=== PATIENT | female | born 1995 | race Caucasian/White ===

== ENCOUNTER 2019-12-21 03:33 | Emergency (ER) | payer MEDICAID ==
[~2019-12-21] VITALS: Ht 165.1 cm; Wt 63.6 kg
[2019-12-21] MEDS ORDERED: ondansetron 4mg rapidly disintigrating tab PO ONE (03:45)
[2019-12-21 04:10] LABS: BASOPHILS # (AUTO) 0.1 X10'3 (0-0.2); BASOPHILS % (AUTO) 0.3 % (0-1); COLOR,URINE YELLOW (Yellow); EOSINOPHILS # (AUTO) 0.1 X10'3 (0-0.9); EOSINOPHILS % (AUTO) 0.6 % (0-6); GLUCOSE, URINE NEGATIVE (Neg); HEMATOCRIT 41.3 % (35.0-45.0); HEMOGLOBIN 13.8 g/dl (12.0-16.0); KETONES,URINE NEGATIVE (Neg); LEUKOCYTE ESTERASE ,URINE SMALL (Neg); LYMPHOCYTES # (AUTO) 3.3 X10'3 (1.1-4.8); LYMPHOCYTES % (AUTO) 17.4 % (21-51); MEAN CORPUSCULAR HEMOGLOBIN 28.7 PG (27.0-31.0); MEAN CORPUSCULAR HGB CONC 33.5 g/dL (33.0-36.5); MEAN CORPUSCULAR VOLUME 85.5 FL (78-98); MEAN PLATELET VOLUME 8.3 FL (7.4-10.4); MONOCYTES % (AUTO) 5.6 % (2-12); NEUTROPHILS # (AUTO) 14.3 X10'3 (1.8-7.7); NEUTROPHILS % (AUTO) 76.1 % (42-75); NITRITES, URINE NEGATIVE (Neg); OCCULT BLOOD,URINE NEGATIVE (Neg); PH,URINE 6.5 (4.8-8.0); PLATELET COUNT 374 X10'3 (140-440); PROTEIN,URINE NEGATIVE (Neg); RED BLOOD COUNT 4.83 X10'6 (4.20-5.60); RED CELL DISTRIBUTION WIDTH 14.3 % (11.5-14.5); UROBILINOGEN,URINE 0.2 E.U/dL (0.2-1.0); WHITE BLOOD COUNT 18.8 X10'3 (4.5-11.0)
[2019-12-21 04:15] LABS: URINE HCG NEGATIVE (NEG)
[2019-12-21 04:16] LABS: UA COLLECTION TYPE CLN CATCH MIDSTREAM
[2019-12-21 04:17] LABS: BACTERIA,URINE FEW /HPF (Neg); CLARITY,URINE SLIGHTLY CLOUDY (Clear); MUCUS STRANDS FEW /LPF (Neg); RBC,URINE 0-2 /HPF (0-2); SQUAMOUS EPITHELIAL CELL,UR FEW /LPF (FEW)
[2019-12-21] MEDS ORDERED: ketorolac tromethamine 15mg/ml inj. IV ONE (04:30)
[2019-12-21 04:37] LABS: URINE AMPHETAMINE SCREEN POSITIVE (Neg); URINE BARBITUATE SCREEN NEGATIVE (Neg); URINE BENZODIAZEPINES SCREEN NEGATIVE (Neg); URINE CANNABINOID SCREEN POSITIVE (Neg); URINE COCAINE SCREEN NEGATIVE (Neg); URINE METHADONE SCREEN NEGATIVE (Neg); URINE OPIATE SCREEN POSITIVE (Neg); URINE PHENCYCLIDINE SCREEN NEGATIVE (Neg)
[2019-12-21 04:46] LABS: ALANINE AMINOTRANSFERASE 18 U/L (12-78); ALKALINE PHOSPHATASE 91 IU/L (46-116); ANION GAP 7 (8-16); ASPARTATE AMINO TRANSFERASE 11 U/L (10-37); BILIRUBIN,TOTAL 0.3 MG/DL (0.1-1.0); BLOOD UREA NITROGEN 12 MG/DL (7-18); CALCIUM 9.4 MG/DL (8.5-10.1); CHLORIDE 105 MMOL/L (99-107); CREATININE 0.86 MG/DL (0.40-0.90); GLUCOSE 105 MG/DL (70-104); LIPASE 62 U/L (73-393); POTASSIUM 4.3 MMOL/L (3.5-5.1); SODIUM 142 MMOL/L (135-145); TOTAL CARBON DIOXIDE 29.9 MMOL/L (24-32); TOTAL PROTEIN 8.2 G/DL (6.4-8.2); eGFR 82 ML/MIN
[2019-12-21] MEDS ORDERED: azithromycin 250mg tablet PO ONE (05:00)
[2019-12-21] MEDS ORDERED: CefTRIAXone 250MG inj IV ONE (05:00)
[2019-12-21] MEDS ORDERED: METR-159 PO (05:07)
[2019-12-21] MEDS ORDERED: DOXY100C43 PO (05:07)
[2019-12-21] MEDS ORDERED: CefTRIAXone 250MG IM Kit w/LIDOcaine IM ONE (05:15)
[2019-12-21 05:30] VITALS: BP 140/94
== END 2019-12-21 05:32 | disposition home or self-care (01) ==
LOC: ER 03:34
DX: N73.9 Female pelvic inflammatory disease, unspecified (principal); N39.0 Urinary tract infection, site not specified; F15.10 Other stimulant abuse, uncomplicated; R11.2 Nausea with vomiting, unspecified; F12.90 Cannabis use, unspecified, uncomplicated; F10.99 Alcohol use, unspecified with unspecified alcohol-induced disorder; Z79.899 Other long term (current) drug therapy; Y90.9 Presence of alcohol in blood, level not specified
CPT/HCPCS: 36415; 74176; 80053; 80305; 81001; 81025; 83690; 85025; 87088; 87210; 87491; 87591; 96372; 96374; 99284; J0696; J1885